=== PATIENT | female | born 1990 | race Caucasian/White ===

== ENCOUNTER 2020-02-10 09:14 | Outpatient (REF) | payer BC, SELFPAY | END 2020-02-10 09:15 | disposition home or self-care (01) | LOC: HO.HMGCLDS 09:14 | PROVIDERS: PCP Family Medicine; Visit Provider Internal Medicine | DX: Z20.828 Contact with and (suspected) exposure to other viral communicable diseases (principal) | CPT/HCPCS: C9803; U0003 ==

== ENCOUNTER 2020-07-18 08:47 | Outpatient (REF) | payer BC, SELFPAY | END 2020-07-18 08:48 | disposition home or self-care (01) | LOC: HO.HMGCLDS 08:47 | PROVIDERS: Visit Provider Internal Medicine | DX: Z20.822 Contact with and (suspected) exposure to COVID-19 (principal) | CPT/HCPCS: U0003; U0005 ==